=== PATIENT | female | born 1995 | race Caucasian/White ===

== ENCOUNTER 2017-03-15 03:10 | Emergency (ER) | payer BC ==
[2017-03-15] MEDS ORDERED: Albuterol 6.7 GM Inhaler INH ONE ×2 (03:11→04:08)
--- NOTE | 2017-03-15 03:14 | EDM.PDOC ---
ED HPI GENERAL MEDICAL PROBLEM - General Chief Complaint: Asthma Stated Complaint: ASTHMA ATTACK Time Seen by Provider: 03/15/17 03:33 Source of Information: Reports: Patient, Family History Limitations: Reports: No Limitations - History of Present Illness INITIAL COMMENTS - FREE TEXT/NARRATIVE: c/o cough and congestion with sore throat. Unsure if fever, Has been trying albuterol inhaler but not helping and it in january. Cough productive, frothy sputum. Nasal drainage yellow Chest Pain Score (Numeric/FACES): 5 - Related Data Allergies Allergy/AdvReac Type Severity Reaction Status Date / Time No Known Allergies Allergy Verified 03/15/17 03:13 Home Meds: Home Meds Albuterol Sulfate [Proair Respiclick] 2 puff INH Q6H 05/31/15 [History] Ethinyl Estradiol/Etonogestrel [Nuvaring Vaginal Ring] 1 unit VAG .Q3WKS [History] Venlafaxine [Effexor XR] 1 tab PO DAILY 05/31/15 [History] Oxybutynin Chloride [Oxybutynin Chloride ER] 10 mg PO ASDIRECTED 01/31/16 [ History] ClonazePAM [KlonoPIN] 0.5 mg PO ASDIRECTED PRN 06/01/16 [History] Past Medical History HEENT History: Reports: Otitis Media Cardiovascular History: Reports: None Respiratory History: Reports: Bronchitis, Recurrent, Other (See Below) Other Respiratory History: seasonal allergies Gastrointestinal History: Reports: Other (See Below) Other Gastrointestinal History: UPSET STOMACH FROM DAIRY PRODUCTS Genitourinary History: Reports: Urinary Incontinence [employer] History: Reports: Polycystic Ovaries Other OB/BYN History: Ovarian cyst, dysmenorrhea in the adolescent Musculoskeletal History: Reports: Back Pain, Chronic, Other (See Below) Other Musculoskeletal History: KNEE PAIN Neurological History: Reports: Migraines Psychiatric History: Reports: Anxiety, Depression, Panic Attack Endocrine/Metabolic History: Reports: None Hematologic History: Reports: None Immunologic History: Reports: None Oncologic (Cancer) History: Reports: None Dermatologic History: Reports: Eczema Other Dermatologic History: Acne - Past Surgical History HEENT Surgical History: Reports: Adenoidectomy, Oral Surgery, Tonsillectomy Social & Family History - Family History Cardiac: Reports: None Respiratory: Reports: None Neurological: Reports: TIA Psychiatric: Reports: Anxiety, Depression Endocrine/Metabolic: Reports: Diabetes, type II Oncologic: Reports: Lung, Prostate - Tobacco Use Smoking Status *Q: Current Every Day Smoker Years of Tobacco use: 4 Packs/Tins Daily: 0.5 Used Tobacco, but Quit: No Second Hand Smoke Exposure: No - Caffeine Use Caffeine Use: Reports: Soda - Alcohol Use Days Per Week of Alcohol Use: 0 - Recreational Drug Use Recreational Drug Use: No Drug Use in Last 12 Months: No ED ROS GENERAL - Review of Systems Review Of Systems: ROS reveals no pertinent complaints other than HPI. ED EXAM, GENERAL - Physical Exam Exam: See Below Exam Limited By: No Limitations General Appearance: Alert, Mild Distress Eye Exam: Bilateral Eye: EOMI Ears: Normal External Exam Ear Exam: Bilateral Ear: TM Dull, Other (TM fluid) Nose: Normal Inspection Throat/Mouth: Inflammation Head: Atraumatic, Normocephalic Neck: Lymphadenopathy (L), Lymphadenopathy (R) Respiratory/Chest: No Respiratory Distress, Decreased Breath Sounds (bases, frequent harsh cough) Cardiovascular: Normal Peripheral Pulses, Regular Rate, Rhythm GI/Abdominal: Normal Bowel Sounds Extremities: Normal Inspection Neurological: Alert, Oriented Skin Exam: Warm, Dry, Intact, Normal Color Course - Vital Signs Last Recorded V/S: Last Vital Signs Temp 98 F 03/15/17 03:19 Pulse 93 03/15/17 03:19 Resp 18 03/15/17 03:19 BP 127/74 03/15/17 03:19 Pulse Ox 98 03/15/17 03:19 - Orders/Labs/Meds Orders: Active Orders 24 hr Category Date Time Status RT Aerosol Therapy [RC] ASDIRECTED Care 03/15/17 03:32 Active CULTURE STREP A CONFIRMATION [] Stat Lab 03/15/17 03:29 Results STREP SCRN A RAPID W CULT CONF [] Stat Lab 03/15/17 03:29 Results Meds: Medications Discontinued Medications Generic Name Dose Route Start Last Admin Trade Name Kimberley PRN Reason Stop Dose Admin Albuterol Confirm 03/15/17 04:08 Proventil Hfa Administered 03/15/17 04:09 Dose 6.7 gm INH .STK-MED ONE Albuterol/Ipratropium 3 ml 03/15/17 03:32 03/15/17 03:44 Duoneb 3.0-0.5 Mg/3 Ml NEB 03/15/17 03:33 3 ml ONETIME ONE Administration Amoxicillin/Clavulanate Potassium 1 tab 03/15/17 03:58 03/15/17 04:04 Augmentin 875 Mg/125 Mg PO 03/15/17 03:59 1 tab ONETIME ONE Administration Benzonatate 200 mg 03/15/17 03:57 03/15/17 04:04 Tessalon Perles PO 03/15/17 03:58 200 mg ONETIME ONE Administration Prednisone 40 mg 03/15/17 03:59 03/15/17 04:04 Prednisone PO 03/15/17 04:00 40 mg ONETIME ONE Administration Departure - Departure Time of Disposition: 03:54 Disposition: Home, Self-Care 01 Condition: Good Clinical Impression: Reactive airway disease Qualifiers: Asthma severity: mild Asthma persistence: intermittent Asthma complication type : with acute exacerbation Qualified Code(s): J45.21 - Mild intermittent asthma with (acute) exacerbation Sinusitis Qualifiers: Sinusitis location: unspecified location Chronicity: acute Recurrence: non- recurrent Qualified Code(s): J01.90 - Acute sinusitis, unspecified - Discharge Information Instructions: Asthma, Adult, [id number] Forms: ED Department Discharge Additional Instructions: albuterol inhaler 2 puffs every 4 hours as needed for cough Tesselon Pearles 20mmg three times elvis #20 Augmentin 875/125 one twice daily for 10days Recheck clinic one week Albuterol 2.5/3ml one via nebulizer every 4 hours as needed #20 - My Orders Last 24 Hours: My Active Orders 03/15/17 03:29 CULTURE STREP A CONFIRMATION [RM] Stat STREP SCRN A RAPID W CULT CONF [RM] Stat 03/15/17 03:32 RT Aerosol Therapy [RC] ASDIRECTED - Assessment/Plan Last 24 Hours: My Active Orders 03/15/17 03:29 CULTURE STREP A CONFIRMATION [RM] Stat STREP SCRN A RAPID W CULT CONF [RM] Stat 03/15/17 03:32 RT Aerosol Therapy [RC] ASDIRECTED
[2017-03-15 03:17] VITALS: BP 127/74
[2017-03-15] MEDS ORDERED: Albuterol/Ipratropium 3.0-0.5 MG/3 ML Neb Soln NEB ONE (03:32)
[2017-03-15] MEDS ORDERED: Benzonatate 100 MG Cap PO ONE (03:57)
[2017-03-15] MEDS ORDERED: Amoxicillin/Clavulanate K 875-125 MG Tab PO ONE (03:58)
[2017-03-15] MEDS ORDERED: predniSONE 20 MG Tab PO ONE (03:59)
== END 2017-03-15 04:21 | disposition home or self-care (01) ==
LOC: DL.ED 03:10
DX: J45.21 Mild intermittent asthma with (acute) exacerbation (principal); J01.90 Acute sinusitis, unspecified; F41.0 Panic disorder [episodic paroxysmal anxiety]; F32.9 Major depressive disorder, single episode, unspecified; F17.210 Nicotine dependence, cigarettes, uncomplicated; Z98.890 Other specified postprocedural states; Z79.899 Other long term (current) drug therapy
CPT/HCPCS: 71020; 87081; 87430; 99285; A9270

== ENCOUNTER 2022-03-16 | Observation (INO) | payer OTHER ==
[2022-03-16] MEDS ORDERED: Misoprostol 50 MCG (1/2 of 100 MCG) Tab VAG ONE (04:00)
[2022-03-16] MEDS ORDERED: Misoprostol 25 MCG (1/4 of 100 MCG) Tab PO ONE (09:00)
[2022-03-16] MEDS ORDERED: Ondansetron 4 MG/2 ML SDV IVPUSH ONE (14:30)
[2022-03-17] MEDS ORDERED: Docusate Sodium 100 MG Cap PO ONE (15:50)
[2022-03-17] MEDS ORDERED: Labetalol 100 MG Tab PO ONE (23:20)
[2022-04-13 12:27] LABS: ESTIMATED GFR 131 mL/min (>=60)
== END 2022-03-18 14:36 | disposition home or self-care (01) ==
LOC: DL.OBCHECK → EDLOC 00:30 → OBSVTOIN 01:26 → DL.OBCHECK 11:36 → DL.ZCENSUS 12:00 → UNDOADMOB 12:00 → EDLOC 16:50 → DL.OBCHECK 23:36
PROVIDERS: ADMIT Family Medicine; ATTEND Family Medicine
DX: O14.03 Mild to moderate pre-eclampsia, third trimester (principal); O99.343 Other mental disorders complicating pregnancy, third trimester; F41.1 Generalized anxiety disorder; O99.513 Diseases of the respiratory system complicating pregnancy, third trimester; J45.909 Unspecified asthma, uncomplicated; O99.333 Smoking (tobacco) complicating pregnancy, third trimester; F17.200 Nicotine dependence, unspecified, uncomplicated; Z3A.39 39 weeks gestation of pregnancy; Z88.1 Allergy status to other antibiotic agents; Z79.899 Other long term (current) drug therapy; Z20.822 Contact with and (suspected) exposure to COVID-19
CPT/HCPCS: 01967; 36415; 82565; 83615; 84450; 84460; 84520; 84550; 85025; 87635; A9270; J2405; U0002

== ENCOUNTER 2022-11-28 10:28 | Emergency (ER) | payer MEDICAID, OTHER ==
[2022-11-28 12:28] VITALS: BP 116/71; PULSE 66
== END 2022-11-28 13:00 | disposition left against medical advice (07) ==
LOC: DL.ED 10:28
DX: S90.02XA Contusion of left ankle, initial encounter (principal); J45.909 Unspecified asthma, uncomplicated; Z88.1 Allergy status to other antibiotic agents; Z88.8 Allergy status to other drugs, medicaments and biological substances; W18.42XA Slipping, tripping and stumbling without falling due to stepping into hole or opening, initial encounter
CPT/HCPCS: 73610-LT; 99283